=== PATIENT | male | born 1980 | race Caucasian/White ===

== ENCOUNTER 2017-05-11 19:47 | Emergency (ER) | payer BC ==
[~2017-05-11] VITALS: Ht 175.3 cm; Wt 86.2 kg
--- NOTE | 2017-05-11 19:52 | NUR ---
YO MALE BB SELF. PT IS ALERT X 3, CO "STOMACH" PAIN. NOTED LEFT LOWER Q PAIN, DENIES NAUSEA VOMIT DIARRHE. PT AMBULATED TO ER BED WITH STEADY GAIT. SKIN WARM AND DRY, RR EVEN AND UNLABORED. PT GOWNED,PLACED ON CLOTH HANDLER, AWAITING ORDERS FROM PROVIDER
[2017-05-11 20:20] LABS: APPEARANCE,URINE Clear (CLEAR); BILIRUBIN,URINE Negative (NEGATIVE); BLOOD, URINE Trace-lysed Ery/uL (NEGATIVE); COLOR,URINE Yellow (YELLOW); KETONES,URINE Negative (NEGATIVE); LEUKOCYTE ESTERASE ,URINE Negative (NEGATIVE); NITRITE, URINE Negative (NEGATIVE); PROTEIN,URINE Negative (NEGATIVE); UGLUCOSE Negative (NEGATIVE); UROBILINOGEN,URINE 0.2 EU/dL (0.2)
--- NOTE | 2017-05-11 20:23 | NUR ---
20g left hand iv started, blood sample obtained and sent to lab. medicated pt as ordered
[2017-05-11 20:25] LABS: BASOPHILS % (AUTO) 0.5 % (0.0-2.0); EOSINOPHILS # (AUTO) 0.1 /CMM (0.0-0.7); EOSINOPHILS % (AUTO) 1.2 % (0.0-6.0); HEMATOCRIT 41 % (39-51); HEMOGLOBIN 14.1 g/dL (13.5-17.5); LYMPHOCYTES # (AUTO) 1.8 /CMM (0.8-4.8); LYMPHOCYTES % (AUTO) 20.5 % (20.0-44.0); MEAN CORPUSCULAR HEMOGLOBIN 31 PG (26.0-33.0); MEAN CORPUSCULAR HGB CONC 35 g/dl (31.0-36.0); MEAN CORPUSCULAR VOLUME 89 fL (80-96); MONOCYTES % (AUTO) 11.3 % (2.0-12.0); NEUTROPHILS # (AUTO) 5.9 /CMM (1.8-8.9); NEUTROPHILS % (AUTO) 66.5 % (43.0-81.0); PLATELET COUNT (AUTO) 300 /CMM (150-450); RDW COEFFICIENT OF VARIATION 10.9 (11.5-15.0); RED BLOOD CELL COUNT(AUTO) 4.59 MIL/uL (4.5-6.0); WHITE BLOOD COUNT (AUTO) 8.8 K/uL (4.3-11.0)
[2017-05-11] MEDS ORDERED: IV NS 0.9% 1,000 ML BAG IV ONE (20:30)
[2017-05-11 20:33] LABS: BACTERIA,URINE None seen /HPF (None Seen); MUCUS,URINE Rare /LPF (None Seen); RBC,URINE 0-2 /HPF (0-2); SQUAMOUS EPITHELIAL CELL,UR Few /HPF (None Seen); WBC,URINE NONE SEEN /HPF (0-3)
[2017-05-11 20:36] LABS: CALCIUM, SERUM 8.9 mg/dL (8.5-10.1); CREATININE 0.8 mg/dL (0.6-1.3); POTASSIUM 3.5 mmol/L (3.5-5.1)
[2017-05-11 20:40] LABS: INR 0.96 (0.87-1.13)
[2017-05-11 20:42] LABS: ALBUMIN 3.7 g/dL (3.4-5.0); BILIRUBIN,DIRECT 0.1 mg/dL (0.0-0.2); BILIRUBIN,TOTAL 0.8 mg/dL (0.2-1.0)
[2017-05-11 21:39] VITALS: BP 150/91
--- NOTE | 2017-05-11 21:40 | NUR ---
Patient discharged to home in stable condition. Written and verbal after care instructions given. Patient verbalizes understanding of instruction.IV removed. Catheter intact and site benign. Pressure and 4x4 applied to site. No bleeding noted. pt ambulatory with a steady gait
== END 2017-05-11 21:44 | disposition home or self-care (01) ==
LOC: ER 19:53
DX: R10.32 Left lower quadrant pain (principal); R50.9 Fever, unspecified; R19.7 Diarrhea, unspecified; R52 Pain, unspecified
CPT/HCPCS: 36415; 80048; 80076; 81001; 83690; 85025; 85730; 96360; 99284; A4606; J7030; 81000-TC; Z7610

== ENCOUNTER 2018-12-11 00:11 | Emergency (ER) | payer BC ==
[~2018-12-11] VITALS: Ht 177.8 cm; Wt 104.3 kg
[2018-12-11] MEDS ORDERED: oxyCODONE/APAP (5/325 MG) 1 UDTAB TABLET PO ONE (00:30)
[2018-12-11] MEDS ORDERED: ONDANSETRON 4 MG TAB.RAPDIS SL ONE (00:30)
--- NOTE | 2018-12-11 00:30 | NUR ---
BIB FOR C/O SEVERE TESTICULAR PAIN X 3 WKS. WORSE TODAY. DENIED DYSURIA. - HEMATURIA. AFEBRILE. URINE COLLECTED AND SENT TO THE LAB.VSS. WILL CONT TO MONITOR ,
[2018-12-11] MEDS ORDERED: ONDANSETRON 4 MG TAB.RAPDIS ONE (00:36)
[2018-12-11] MEDS ORDERED: oxyCODONE/APAP (5/325 MG) 1 UDTAB TABLET ONE (00:36)
[2018-12-11 00:43] LABS: APPEARANCE,URINE Clear (CLEAR); BILIRUBIN,URINE Negative (NEGATIVE); BLOOD, URINE Trace-intact Ery/uL (NEGATIVE); COLOR,URINE Yellow (YELLOW); KETONES,URINE Negative (NEGATIVE); LEUKOCYTE ESTERASE ,URINE Negative (NEGATIVE); NITRITE, URINE Negative (NEGATIVE); PROTEIN,URINE Negative (NEGATIVE); UGLUCOSE Negative (NEGATIVE); UROBILINOGEN,URINE 0.2 EU/dL (0.2)
[2018-12-11] MEDS ORDERED: LORAZEPAM 1 MG TABLET ONE (00:47)
[2018-12-11] MEDS ORDERED: LORAZEPAM 1 MG TABLET PO ONE (01:00)
[2018-12-11 01:01] LABS: BACTERIA,URINE Few /HPF (None Seen); SQUAMOUS EPITHELIAL CELL,UR Rare /HPF (None Seen); WBC,URINE 0-2 /HPF (0-3)
[2018-12-11] MEDS ORDERED: LEVOFLOXACIN (500MG) 500 MG TABLET ONE (01:51)
[2018-12-11] MEDS ORDERED: AZITHROMYCIN 250 MG TABLET ONE (01:51)
[2018-12-11] MEDS ORDERED: CEFTRIAXONE 500 MG VIAL ONE (01:51)
[2018-12-11] MEDS ORDERED: LIDOCAINE 1% INJ 50 ML MDV IJ ONE (01:53)
[2018-12-11] MEDS ORDERED: LEVOFLOXACIN (500MG) 500 MG TABLET PO ONE (02:00)
[2018-12-11] MEDS ORDERED: CEFTRIAXONE 1 G VIAL IM ONE (02:00)
[2018-12-11] MEDS ORDERED: AZITHROMYCIN 250 MG TABLET PO ONE (02:00)
--- NOTE | 2018-12-11 02:11 | NUR ---
Patient discharged to home in stable condition. Written and verbal after care instructions given. Patient verbalizes understanding of instruction.
[2018-12-11 03:04] VITALS: BP 138/77
== END 2018-12-11 02:10 | disposition home or self-care (01) ==
LOC: ER 00:14
DX: N45.1 Epididymitis (principal); G89.29 Other chronic pain
CPT/HCPCS: 76870; 81001; 87491; 87591; 96372; 99284; J0696; J3490; Q0162; 81000-TC

== ENCOUNTER 2021-03-11 23:56 | Emergency (ER) | payer BC ==
[~2021-03-11] VITALS: Ht 175.3 cm; Wt 93.0 kg
[2021-03-12] MEDS ORDERED: AMOX-430 PO (00:10)
--- NOTE | 2021-03-12 00:13 | NUR ---
PT BIBS WITH C/O DOGBITE TO NOSE. PT ALERT AND OREIENTED X4. AMBULATORY WITH NON LABORED BREATHING.
--- NOTE | 2021-03-12 00:13 | NUR ---
EMT @ BEDSIDE DOING THE DRESSING.
[2021-03-12] MEDS ORDERED: TDAP [DIPH/PERTUSSIS/TET] 0.5 ML VIAL IM ONE ×2 (00:16→00:30)
[2021-03-12] MEDS ORDERED: AMOX/CLAVULANATE 875 MG TABLET ONE (00:16)
[2021-03-12] MEDS ORDERED: AMOX/CLAVULANATE 875 MG TABLET PO ONE (00:30)
--- NOTE | 2021-03-12 00:36 | NUR ---
Patient discharged to home in stable condition. Written and verbal after care instructions given. Patient verbalizes understanding of instruction. RX GIVEN
[2021-03-12 00:37] VITALS: BP 134/70
== END 2021-03-12 00:37 | disposition home or self-care (01) ==
LOC: ER 03-12 00:02
DX: S01.21XA Laceration without foreign body of nose, initial encounter (principal); Z79.899 Other long term (current) drug therapy; W54.0XXA Bitten by dog, initial encounter; Y93.89 Activity, other specified; Y92.89 Other specified places as the place of occurrence of the external cause; Y99.8 Other external cause status
CPT/HCPCS: 90471; 90715; 99283; A6403